=== PATIENT | female | born 1990 | race African-American/Black ===

== ENCOUNTER 2020-01-23 19:15 | Inpatient (IN) | payer OTHER ==
[2020-01-23] MEDS: Lactated Ringer's 1,000 ML IV SCH (21:00)
[2020-01-23] MEDS ORDERED: Ondansetron PF 4 MG/2 ML Vial IVP PRN (21:04)
[2020-01-23] MEDS ORDERED: Ibuprofen 800 MG TAB PO PRN (21:04)
[2020-01-23] MEDS ORDERED: Lidocaine 1% (PF) 30 ML VIAL SC PRN (21:04)
[2020-01-23] MEDS ORDERED: Promethazine HCl 25 MG/ML VIAL IM PRN (21:04)
[2020-01-23] MEDS ORDERED: hydrALAZINE 20 MG/ML VIAL SLOW IVP PRN (21:04)
[2020-01-23] MEDS ORDERED: Methylergonovine 0.2 MG/ML VIAL IM PRN (21:04)
[2020-01-23] MEDS ORDERED: Misoprostol 200 MCG TAB PR PRN (21:04)
[2020-01-23] MEDS ORDERED: NS / Oxytocin 40 units/1000ml 1,000 ML IV PRN (21:04)
[2020-01-23] MEDS ORDERED: HYDROcodone/Acetaminophen 5/325 mg Tablet PO PRN ×2 (21:04)
[2020-01-23] MEDS ORDERED: NS w/ Oxytocin 10 units 500 ML IV SCH (21:15)
[2020-01-23 21:17] VITALS: BMI 30.9
[2020-01-23] MEDS: Misoprostol 100 MCG TAB VAG SCH (21:29)
[2020-01-23 21:50] LABS: Mean Corpuscular HGB CONC 32.9 g/dL (32.0-36.0); Mean Corpuscular Hemoglobin 27.2 pg (27.0-31.0); Mean Corpuscular Volume 82.7 fL (78.0-98.0); Mean Platelet Volume 9.2 fL (7.4-10.4); Platelet Count 213 thou/uL (130-400); RBC Distribution Width 14.6 % (11.5-14.5); Red Blood Cell (RBC) Count 3.32 mill/uL (4.20-5.40); White Blood Cell (WBC) Count 8.6 thou/uL (4.8-10.8)
[2020-01-23 22:40] LABS: Syphilis Antibody Nonreactive (Nonreactive); Syphilis Antibody Index 0.05 S/CO (<1.00 Non-Reactive)
[2020-01-23 23:41] LABS: HBSAg Index 0.29 S/CO (0-0.99); Hep B Surf Ag Non-Reactive S/CO (NonReactive)
[2020-01-24] MEDS: Butorphanol Tartrate 1 MG/ML VIAL SLOW IVP PRN ×2 (01:51→03:15)
[2020-01-24] MEDS ORDERED: Fentanyl 4 mcg/Bup 0.1% Cadd 100 ML ONE (05:11)
[2020-01-24] MEDS: Lactated Ringer's 1,000 ML IV SCH ×4 (05:21→14:35)
[2020-01-24] MEDS ORDERED: Promethazine HCl 25 MG/ML VIAL IM PRN ×3 (06:02→17:40)
[2020-01-24] MEDS ORDERED: diphenhydrAMINE 50 MG/ML VIAL IVP PRN ×2 (06:02→15:54)
[2020-01-24] MEDS ORDERED: Lactated Ringer's 500 ML IV PRN (06:02)
[2020-01-24] MEDS ORDERED: Ondansetron PF 4 MG/2 ML Vial IVP PRN ×3 (06:02→17:40)
[2020-01-24] MEDS ORDERED: Acetaminophen 325 MG TAB PO PRN ×2 (06:02→17:40)
[2020-01-24] MEDS ORDERED: EPHEDRINE 25 MG/5 ML SYRINGE SLOW IVP PRN (06:02)
[2020-01-24] MEDS ORDERED: Naloxone HCl 0.4 mg/ml Vial IVP PRN ×4 (06:02→15:54)
[2020-01-24] MEDS: Terbutaline Sulfate 1 MG/ML VIAL ONE ×2 (06:13→09:02)
[2020-01-24] MEDS ORDERED: Communication Order-Pharmacy FS SCH ×2 (06:15→16:00)
[2020-01-24] MEDS ORDERED: Fentanyl 4 mcg/Bupivacaine 0.1% Cassette 100 ML EPIDURAL SCH (06:15)
[2020-01-24] MEDS ORDERED: Terbutaline Sulfate 1 MG/ML VIAL SC SCH (06:30)
--- NOTE | 2020-01-24 08:19 | PDOC.LDHP ---
Labor and Delivery H&P Chief complaint: scheduled induction HPI: Here for IOL. Affirms movement. Current gestational age (weeks): 39 Due date: 01/25/20 Dating criteria: second trimester ultrasound Grav: 2 Para: 0 OB History Details: Elective AB Abnormal US findings: No Current medications: pre-sacha vitamins Previous surgical history: none Allergies/Adverse Reactions: Allergies Allergy/AdvReac Type Severity Reaction Status Date / Time No Known Allergies Allergy Verified 01/23/20 21:05 - Physical Exam Vital signs reviewed and normal: yes General: breathing through contractions Lungs: nonlabored breathing Abdomen: gravid FHT: category 2 - Vaginal Exam cm dilated: 5 Effacement: 90% Station: 0 - OB Labs Blood type: B RH: positive Antibody Screen: negative HIV: negative RPR: negative HEPSAg: negative 1 hour GCT: negative GBS: negative Rubella: immune Additional Labs: GCCT neg. COVID neg - Assessment L&D Assessment: elective induction at term - Plan Plan: admit to L&D, informed consent obtained, anesthesia consult for pain management (Epidural replaced Internals x 2 placed. If tachycardia continues - will start ABX empirically for chorioamnionitis.)
--- NOTE | 2020-01-24 09:47 | PDOC.EVN ---
Event Note - Event Note Event Note: Came to room with pt having recurrent late decelerations in the setting of tachysystole, concentrated urine output, rebolus of the epidural. sve 7/100/+1 station. Pt provider has ordered 2 doses of terbutaline, iv fluid boluses. Nursing staff leading in position changes with out resolution. With urine still dark I have asked for another fluid bolus of 500cc (she has received 2L up to now) and O2 in an effort to overcome what appears to be placental insufficiency. Lates have since resolved. Once pt is moved from hands and knees we will change face mask to nasal canula and wean O2 according to tolerance. I anticipate in the very near future as pt has been making fairly rapid change. Primary provider has been updated.
[2020-01-24] MEDS ORDERED: Gentamicin Sulfate 320 MG in Sodium Chloride 0.9% 100 ML IVPB SCH (10:00)
[2020-01-24] MEDS ORDERED: Ampicillin 125 MG/5 ML VIAL IVPB SCH (12:00)
--- NOTE | 2020-01-24 13:00 | PDOC.LDPN ---
Labor & Delivery Progress Note - Subjective Subjective: comfortable (with epidural) - Objective Abnormal vital signs: Tachcardic to 115 follow 2 doses of Terbutaline SC General: NAD Uterine fundus: non tender Dilation: 8 Effacement: 90% Station: 1+ FHT: category 2 Other exam findings: Late decels resolved after Terbutaline x2, position changes , fluid, O2. Resuscitative measures: maternal position change - Assessment (1) Elective induction of labor planned Code(s): [id number] - Current Visit: Yes Status: Acute (2) Encounter for elective induction of labor Code(s): Z34.90 - ENCNTR FOR SUPRVSN OF NORMAL , UNSP, UNSP TRIMESTER Current Visit: Yes Status: Acute (3) Nulliparity Code(s): NIS3200 - Current Visit: Yes Status: Acute -: Baseline 150, minimal variability with periods of moderate variability. One variable decel noted after checking pt while flat on back. MVUs 170. Strip is reviewed in detail with RN. Discussed POC with pt to include starting pitocin with low tolerance for primary section
[2020-01-24] MEDS: Ampicillin 2 GM in Sodium Chloride 0.9% 100 ML IVPB SCH (13:55)
[2020-01-24] MEDS ORDERED: Azithromycin 500 MG VIAL ONE (14:03)
[2020-01-24] MEDS ORDERED: Azithromycin 500 MG in Sodium Chloride 0.9% 250 ML 250 ML IVPB SCH (14:15)
[2020-01-24] MEDS ORDERED: CEFAZOLIN 2 GM in Premix Bag 1 BAG IVPB SCH (14:15)
[2020-01-24] MEDS ORDERED: Bicitra 30 ML UDCUP PO SCH (14:15)
[2020-01-24] MEDS ORDERED: Famotidine/PF 20 mg/2ml Vial ONE (14:29)
[2020-01-24] MEDS ORDERED: Oxytocin 10 UNITS/ML VIAL ONE ×2 (14:36→15:10)
[2020-01-24 15:07] LABS: Actual Bicarbonate (HCO3v) 18 mEq/L (22-28); Base Excess -10.4 mEq/L (-2.0 to +3.0)
[2020-01-24 15:09] LABS: pH (Cord, venous) 7.18 (7.32-7.43)
[2020-01-24 15:10] LABS: Base Excess (BEa) -11.8 mEq/L (-2.0 to +3.0)
[2020-01-24] MEDS ORDERED: MORPHINE 5 MG/10 ML PF VIAL ONE (15:11)
[2020-01-24] MEDS ORDERED: Lidocaine 2% 10 ML INJ ONE (15:18)
[2020-01-24] MEDS ORDERED: Fentanyl 100 MCG/2 ML VIAL ONE (15:27)
[2020-01-24] MEDS ORDERED: HYDROmorphone 2 MG/ML VIAL SLOW IVP PRN (15:54)
[2020-01-24] MEDS ORDERED: Meperidine HCl/PF 25 MG/ML VIAL SLOW IVP PRN (15:54)
[2020-01-24] MEDS ORDERED: Promethazine HCl 25 MG SUPP PR PRN (15:54)
[2020-01-24] MEDS ORDERED: L&D-Morphine 4 MG/ML VIAL SLOW IVP PRN (15:54)
[2020-01-24] MEDS ORDERED: Ondansetron HCl/PF 4 MG/2 ML Vial IVP PRN (15:54)
[2020-01-24] MEDS ORDERED: Naloxone HCl 0.4 mg/ml Vial IV PRN (15:54)
[2020-01-24] MEDS ORDERED: diphenhydrAMINE 25 MG CAP PO PRN (17:40)
[2020-01-24] MEDS ORDERED: Methylergonovine 0.2 MG/ML VIAL IM PRN (17:40)
[2020-01-24] MEDS ORDERED: NS / Oxytocin 40 units/1000ml 1,000 ML IV SCH (17:40)
[2020-01-24] MEDS ORDERED: hydrALAZINE 20 MG/ML VIAL SLOW IVP PRN (17:40)
[2020-01-24] MEDS ORDERED: Lanolin Ointment 7 GM TUBE TOP PRN (17:40)
[2020-01-24] MEDS ORDERED: Misoprostol 200 MCG TAB PR PRN (17:40)
[2020-01-24] MEDS ORDERED: Ketorolac Tromethamine 30 MG/ML VIAL IVP PRN (23:00)
--- NOTE | 2020-01-25 02:58 | OP ---
DATE OF PROCEDURE: 01/24/2020 PREOPERATIVE DIAGNOSIS: 1. Intrauterine at 39 weeks and 6 days. 2. Non-reassuring heart tones. 3. Intolerance to labor. POSTOPERATIVE DIAGNOSES: 1. Intrauterine at 39 weeks and 6 days. 2. Non-reassuring heart tones. 3. Intolerance to labor. PROCEDURE PERFORMED: Primary low transverse section. CENTRAL SUPPLY TECHNICIAN SUPERVISOR: Natalee Marcum CNM ANESTHESIA: Epidural. QUANTITATIVE BLOOD LOSS: 430 mL. COUNTS: Correct. CONDITION: Stable to recovery room. COMPLICATIONS: None. DESCRIPTION OF PROCEDURE: Ms. Rhiannon Sultana is a 29-year-old female, who presented to Labor and Delivery for scheduled induction of labor due to persistent non-reassuring heart tones and intolerance to labor. Decision was made to proceed with primary . The patient was counseled the risks, benefits, and options and was taken to the operating room for surgery. There, she was prepared and draped in normal sterile fashion and placed in dorsal supine position with a leftward tilt. After testing anesthesia for adequacy, I made a Pfannenstiel incision on the patient's lower abdomen and carried it down the level of the fascia. The fascia was incised and extended laterally with Crabtree scissors. The fascial edges were elevated with Layo clamps and dissected off bluntly and sharply from the underlying rectus muscles. Once this was performed, the peritoneal cavity was then entered into bluntly and extended bluntly. An Prudencio O retractor was then inserted to aid in retraction. The hysterotomy was performed in the lower uterine segment in a transverse fashion. was delivered to a sterile field. The was bulb suctioned and the cord was clamped and cut and the infant was handed off to the waiting attendants. Placenta was manually extracted. The uterus was cleared of all clot and debris. The hysterotomy was then closed with #1 PDS in a running locked fashion with a second-imbricating layer. At this point, the hysterotomy was noted to have good hemostasis and the Prudencio O retractor was then removed. The underlying peritoneum was then closed with 2-0 chromic in a running fashion and the fascia was closed with 0 Vicryl in a running fashion. The subcutaneous fat was closed with 2-0 plain gut in two layers in a running fashion. The skin edges noted to have significant amount of bleeding. The skin was closed with 4-0 Monocryl in a running fashion and then the incision was bandaged and a pressure dressing was applied. The patient was taken to recovery room in stable condition. Job ID: [id number] MTDD
[2020-01-25] MEDS: Misoprostol 100 MCG TAB VAG SCH ×2 (03:02→03:03)
[2020-01-25] MEDS: Docusate Calcium (SURFAK) 240 MG CAP PO SCH ×3 (03:02→21:41)
[2020-01-25] MEDS: Ferrous Sulfate 325 MG TAB PO SCH ×3 (03:02→21:41)
[2020-01-25] MEDS: Ampicillin 2 GM in Sodium Chloride 0.9% 100 ML IVPB SCH (03:03)
[2020-01-25] MEDS: Lactated Ringer's 1,000 ML IV SCH ×2 (03:03→17:35)
[2020-01-25] MEDS ORDERED: HYDROcodone/Acetaminophen 5/325 mg Tablet PO PRN (04:00)
[2020-01-25 06:16] LABS: Mean Corpuscular HGB CONC 31.9 g/dL (32.0-36.0); Mean Corpuscular Hemoglobin 26.8 pg (27.0-31.0); Mean Corpuscular Volume 83.9 fL (78.0-98.0); Mean Platelet Volume 8.5 fL (7.4-10.4); Platelet Count 190 thou/uL (130-400); RBC Distribution Width 14.7 % (11.5-14.5)
[2020-01-25] MEDS ORDERED: Adacel (T-DAP) 0.5 ML SYRINGE IM ONE (09:00)
[2020-01-25] MEDS: Prenatal Vitamin 1 TAB PO SCH (10:33)
[2020-01-25] MEDS: Simethicone Chewable 80 MG TAB PO PRN (13:30)
[2020-01-25] MEDS: HYDROcodone/Acetaminophen 5/325 mg Tablet PO PRN ×2 (13:30→21:40)
[2020-01-25] MEDS: Ibuprofen 800 MG TAB PO SCH (22:00)
[2020-01-26] MEDS: Lactated Ringer's 1,000 ML IV SCH ×4 (05:47→22:03)
[2020-01-26] MEDS ORDERED: Ibuprofen 800 MG TAB PO SCH (06:00)
[2020-01-26] MEDS: Ibuprofen 800 MG TAB PO SCH ×3 (06:09→21:22)
[2020-01-26] MEDS: Ferrous Sulfate 325 MG TAB PO SCH ×2 (09:05→21:22)
[2020-01-26] MEDS: Prenatal Vitamin 1 TAB PO SCH (09:05)
[2020-01-26] MEDS: Docusate Calcium (SURFAK) 240 MG CAP PO SCH ×2 (09:05→21:22)
[2020-01-26] MEDS: Simethicone Chewable 80 MG TAB PO PRN (21:22)
[2020-01-27] MEDS: HYDROcodone/Acetaminophen 5/325 mg Tablet PO PRN (03:24)
[2020-01-27] MEDS: Ibuprofen 800 MG TAB PO SCH (06:20)
--- NOTE | 2020-01-27 08:17 | PDOC.PP ---
Post Progress Note Post Day #: 3 Subjective: patient is doing well and is ready to discharge home. PO intake tolerated: yes Flatus: yes Ambulation: yes Weight Weight 175 lb - Physical Examination Respiratory: non-labored breathing Abdominal: lochia, no distention, appropriately TTP Extremities: negative homans (B) Skin: CS incision dry & intact Neurological: no gross focal deficits Psychiatric: A&Ox3, normal affect Result Diagrams: 01/25/20 06:04 Additional Labs: Post Labs Blood Type B POSITIVE 01/23/20 22:44 Hep Bs Antigen Non-Reactive S/CO (NonReactive) 01/23/20 21:55 (1) Elective induction of labor planned Code(s): [id number] - Status: Acute (2) Encounter for elective induction of labor Code(s): Z34.90 - ENCNTR FOR SUPRVSN OF NORMAL , UNSP, UNSP TRIMESTER Status: Acute (3) Nulliparity Code(s): [id number] - Status: Acute - Assessment/Plan a; G2 nowp1 s/p PCS for non reassuring FHT with NML POD3 exam P; Discharge home pain medication sent from Office. 10 days incision check 6 week pp visit.
--- NOTE | 2020-01-27 08:19 | PDOC.PP ---
Post Progress Note Post Day #: 2 Subjective: doign well. would like to stay another day. PO intake tolerated: yes Flatus: yes Ambulation: yes Weight Weight 175 lb - Physical Examination Respiratory: non-labored breathing Abdominal: no distention, appropriately TTP Skin: CS incision dry & intact Psychiatric: A&Ox3, normal affect Result Diagrams: 01/25/20 06:04 Additional Labs: Post Labs Blood Type B POSITIVE 01/23/20 22:44 Hep Bs Antigen Non-Reactive S/CO (NonReactive) 01/23/20 21:55 (1) Elective induction of labor planned Code(s): [id number] - Status: Acute (2) Encounter for elective induction of labor Code(s): Z34.90 - ENCNTR FOR SUPRVSN OF NORMAL , UNSP, UNSP TRIMESTER Status: Acute (3) Nulliparity Code(s): [id number] - Status: Acute - Assessment/Plan pod 2 sp cs with nml exam. P routine pp care. discharge home tomorrow.
--- NOTE | 2020-01-27 08:20 | PDOC.PP ---
Post Progress Note Post Day #: 1 Subjective: Doing ok. Has yet to urinate after removal of ramon PO intake tolerated: yes Flatus: yes Ambulation: yes Weight Weight 175 lb - Physical Examination Respiratory: non-labored breathing Abdominal: no distention, appropriately TTP Extremities: negative homans (B) Skin: CS incision dry & intact Neurological: no gross focal deficits Psychiatric: A&Ox3, normal affect Result Diagrams: 01/25/20 06:04 Additional Labs: Post Labs Blood Type B POSITIVE 01/23/20 22:44 Hep Bs Antigen Non-Reactive S/CO (NonReactive) 01/23/20 21:55 (1) Elective induction of labor planned Code(s): [id number] - Status: Acute (2) Encounter for elective induction of labor Code(s): Z34.90 - ENCNTR FOR SUPRVSN OF NORMAL , UNSP, UNSP TRIMESTER Status: Acute (3) Nulliparity Code(s): [id number] - Status: Acute - Assessment/Plan a s/p pcs for non reassuring fht. NML pod 1 exam P; up to urinate. ambulation x 3 today routine care
[2020-01-27] MEDS: Docusate Calcium (SURFAK) 240 MG CAP PO SCH (08:21)
[2020-01-27] MEDS: Ferrous Sulfate 325 MG TAB PO SCH (08:21)
[2020-01-27] MEDS: Prenatal Vitamin 1 TAB PO SCH (08:21)
[2020-01-27 08:40] VITALS: BP 131/60; TEMP 98.4
[2020-01-27] MEDS: Lactated Ringer's 1,000 ML IV SCH (10:58)
== END 2020-01-27 13:20 | disposition home or self-care (01) | DRG 786 ==
LOC: L&D 19:35 → 3SW 01-24 19:06
PROVIDERS: ADMIT Obstetrics & Gynecology; ATTEND Obstetrics & Gynecology
PROC: 10D00Z1 Extraction of Products of Conception, Low, Open Approach (ICD-10-PCS; principal; 2020-01-25)
PROC: 10907ZC Drainage of Amniotic Fluid, Therapeutic from Products of Conception, Via Natural or Artificial Opening (ICD-10-PCS; 2020-01-25)
PROC: 3E0P7VZ Introduction of Hormone into Female Reproductive, Via Natural or Artificial Opening (ICD-10-PCS; 2020-01-25)
PROC: 3E033VJ Introduction of Other Hormone into Peripheral Vein, Percutaneous Approach (ICD-10-PCS; 2020-01-25)
DX: O76 Abnormality in fetal heart rate and rhythm complicating labor and delivery (principal); O41.1230 Chorioamnionitis, third trimester, not applicable or unspecified; Z20.828 Contact with and (suspected) exposure to other viral communicable diseases; O61.0 Failed medical induction of labor; Z3A.39 39 weeks gestation of pregnancy; Z37.0 Single live birth
CPT/HCPCS: 36415; 51702; 82805; 85027; 86780; 86850; 86900; 86901; 87340; J0290; J0456; J0595; J0690; J1580; J1885; J2274; J2590; J3010; J3105; J3490; S0028

== ENCOUNTER 2020-06-03 17:21 | Emergency (ER) | payer OTHER | END 2020-06-03 19:12 | disposition home or self-care (01) | LOC: ERS 17:21 | DX: K04.7 Periapical abscess without sinus (principal); L03.211 Cellulitis of face | CPT/HCPCS: 99283 ==

== ENCOUNTER 2021-11-15 12:19 | Inpatient (IN) | payer OTHER ==
[2021-11-15 13:26] LABS: Hemoglobin 11.7 g/dL (12.0-16.0); Mean Corpuscular HGB CONC 33.8 g/dL (32.0-36.0); Mean Corpuscular Hemoglobin 31.5 pg (27.0-31.0); Mean Corpuscular Volume 93.2 fL (78.0-98.0); Mean Platelet Volume 7.2 fL (7.4-10.4); Platelet Count 209 thou/uL (130-400); RBC Distribution Width 12.3 % (11.5-14.5); Red Blood Cell (RBC) Count 3.72 mill/uL (4.20-5.40); White Blood Cell (WBC) Count 13.8 thou/uL (4.8-10.8)
[2021-11-15 13:46] LABS: ALT (SGPT) 8 U/L (8-55); AST (SGOT) 9 U/L (5-34); Albumin 3.7 g/dL (3.5-5.0); Alkaline Phosphatase 64 U/L (40-110); Anion Gap 15 mmol/L (10-20); BUN (Urea Nitrogen) 9 mg/dL (7.0-18.7); Bilirubin, Total 0.7 mg/dL (0.2-1.2); Calc. Creatinine Clearance 0 mL/min (70-130); Calcium 8.9 mg/dL (7.8-10.44); Carbon Dioxide 22 mmol/L (22-29); Chloride 97 mmol/L (98-107); Globulin 3.7 g/dL (2.4-3.5); Glucose 126 mg/dL (70-105); Protein, Total 7.4 g/dL (6.0-8.3); Sodium 131 mmol/L (136-145)
[2021-11-15 13:51] LABS: Band 16 % (5-11); Lymphocytes 10 % (21-51); MDiff Complete? YES; Monocytes 8 % (0-10); Neutrophil 66 % (42-75); Platelet Morphology Comment Appears Adequate; Polychromasia SLIGHT = 2-3 cells (100X) (0-2/hpf)
[2021-11-15 13:53] LABS: Potassium 2.8 mmol/L (3.5-5.1)
[2021-11-15] MEDS ORDERED: Potassium Chloride 20 MEQ TAB ONE (14:17)
[2021-11-15] MEDS ORDERED: Ketorolac Tromethamine 30 MG/ML VIAL ONE (14:17)
[2021-11-15 16:01] LABS: BHCG - Serum Negative (NEGATIVE); Pregs Control Background? CLEAR/WHITE (CLR/WHITE); Pregs Control Bar Appear? YES (CONTROL BAR)
[2021-11-15 16:03] LABS: Bacteria/HPF 2+ HPF (None Seen); Bilirubin Negative (Negative); Blood, Urine 1+ (Negative); Clarity Turbid (Clear); Glucose, Urine (Dipstick) Normal (Negative); Ketone, Urine 10 mg/dL (Negative); Leukocyte 500 Leu/uL (Negative); Nitrite 2+ (Negative); Protein, Urine (Dipstick) 30 mg/dL (Neg-Trace); Specific Gravity, Urine 1.012 (1.002-1.036); Urobilinogen Normal mg/dL (Less than 2); WBC/HPF Greater than 50 HPF (0-3)
[2021-11-15 16:15] LABS: Pregnancy Test - Urine (BHCG) Negative (Negative)
[2021-11-15 16:16] LABS: Pregu Control Background? CLEAR/WHITE (CLR/WHITE); Pregu Control Bar Appear? YES (CONTROL BAR); Specific Gravity 1.012 (1.002-1.036)
[2021-11-15] MEDS ORDERED: Vancomycin 1 GM/200 ML BAG ONE (16:33)
[2021-11-15] MEDS ORDERED: cefTRIAXone\\ROCEPHIN 2 GM VIAL ONE (16:33)
[2021-11-15] MEDS ORDERED: Ondansetron PF 4 MG/2 ML Vial IVP PRN (17:16)
[2021-11-15] MEDS ORDERED: Acetaminophen 650 MG Suppository PR PRN (17:16)
[2021-11-15] MEDS ORDERED: Ondansetron ODT 4 MG TAB PO PRN (17:16)
[2021-11-15] MEDS ORDERED: Melatonin 3 MG TAB PO PRN (17:19)
[2021-11-15] MEDS ORDERED: Potassium Chloride 20 MEQ TAB PO SCH (17:30)
[2021-11-15 18:09] LABS: Magnesium 1.8 mg/dL (1.6-2.6)
[2021-11-15 18:26] VITALS: BMI 27.6
[2021-11-15] MEDS: Acetaminophen 325 MG TAB PO PRN (18:44)
[2021-11-15] MEDS: Sodium Chloride 0.9% 1,000 ML IV SCH (18:45)
[2021-11-15] MEDS ORDERED: Electrolyte Replacement Protocol 1 EACH FS SCH (20:33)
[2021-11-15 22:48] LABS: Anion Gap 11 mmol/L (10-20); BUN (Urea Nitrogen) 8 mg/dL (7.0-18.7); Calc. Creatinine Clearance 83 mL/min (70-130); Calcium 7.7 mg/dL (7.8-10.44); Carbon Dioxide 23 mmol/L (22-29); Chloride 107 mmol/L (98-107); Glucose 130 mg/dL (70-105); Potassium 3.5 mmol/L (3.5-5.1); Sodium 137 mmol/L (136-145)
[2021-11-16] MEDS ORDERED: Magnesium 2 GM/50 ML(in water) 2 GM in Premix Bag 1 BAG IVPB SCH (01:00)
[2021-11-16] MEDS: Acetaminophen 325 MG TAB PO PRN ×2 (01:00→18:00)
[2021-11-16] MEDS: Sodium Chloride 0.9% 1,000 ML IV SCH ×3 (01:01→15:38)
[2021-11-16] MEDS ORDERED: Acetaminophen 325 MG TAB PO SCH (03:30)
[2021-11-16 06:27] LABS: #Lymphocytes 1.2 thou/uL (1.20-3.40); #Monocytes 1.8 thou/uL (0.11-0.59); #Neutrophils 11.6 thou/uL (1.40-6.50); %Basophils 0.1 % (0.0-1.0); %Eosinophils 0.1 % (0.0-10.0); %Monocytes 12.2 % (0.0-10.0); %Neutrophils 79.6 % (42.0-75.0); Hemoglobin 10.5 g/dL (12.0-16.0); Mean Corpuscular Hemoglobin 30.7 pg (27.0-31.0); Mean Platelet Volume 7.3 fL (7.4-10.4); Platelet Count 192 thou/uL (130-400); RBC Distribution Width 12.6 % (11.5-14.5); Red Blood Cell (RBC) Count 3.43 mill/uL (4.20-5.40); White Blood Cell (WBC) Count 14.5 thou/uL (4.8-10.8)
[2021-11-16 06:48] LABS: Anion Gap 11 mmol/L (10-20); BUN (Urea Nitrogen) 7 mg/dL (7.0-18.7); Calc. Creatinine Clearance 73 mL/min (70-130); Calcium 8.1 mg/dL (7.8-10.44); Carbon Dioxide 21 mmol/L (22-29); Chloride 109 mmol/L (98-107); Glucose 114 mg/dL (70-105); Potassium 3.6 mmol/L (3.5-5.1); Sodium 137 mmol/L (136-145)
[2021-11-16] MEDS ORDERED: Potassium Chloride 20 MEQ TAB PO SCH (09:00)
[2021-11-16 13:34] LABS: Potassium 3.6 mmol/L (3.5-5.1)
[2021-11-16] MEDS: cefTRIAXone\\ROCEPHIN 1 GM in Sodium Chloride 0.9% 100 ML IVPB SCH (15:38)
[2021-11-16] MEDS: metroNIDAZOLE 500 MG in Premix Bag 1 BAG IVPB SCH (20:38)
[2021-11-17] MEDS: Sodium Chloride 0.9% 1,000 ML IV SCH ×3 (02:00→15:40)
[2021-11-17] MEDS: metroNIDAZOLE 500 MG in Premix Bag 1 BAG IVPB SCH ×3 (04:07→20:39)
[2021-11-17 06:27] LABS: #Basophils 0.1 thou/uL (0.0-0.2); #Lymphocytes 1.8 thou/uL (1.20-3.40); #Monocytes 1.3 thou/uL (0.11-0.59); #Neutrophils 9.2 thou/uL (1.40-6.50); %Basophils 0.5 % (0.0-1.0); %Eosinophils 0.3 % (0.0-10.0); %Lymphocytes 14.6 % (21.0-51.0); %Monocytes 10.6 % (0.0-10.0); %Neutrophils 74.1 % (42.0-75.0); Mean Corpuscular HGB CONC 31.5 g/dL (32.0-36.0); Mean Corpuscular Hemoglobin 29.8 pg (27.0-31.0); Mean Corpuscular Volume 94.7 fL (78.0-98.0); Mean Platelet Volume 6.9 fL (7.4-10.4); Platelet Count 216 thou/uL (130-400); Red Blood Cell (RBC) Count 3.35 mill/uL (4.20-5.40); White Blood Cell (WBC) Count 12.4 thou/uL (4.8-10.8)
[2021-11-17 07:01] LABS: Anion Gap 8 mmol/L (10-20); BUN (Urea Nitrogen) 5 mg/dL (7.0-18.7); Calc. Creatinine Clearance 93 mL/min (70-130); Calcium 8.3 mg/dL (7.8-10.44); Carbon Dioxide 20 mmol/L (22-29); Chloride 114 mmol/L (98-107); Glucose 100 mg/dL (70-105); Potassium 3.8 mmol/L (3.5-5.1); Sodium 138 mmol/L (136-145)
[2021-11-17] MEDS: cefTRIAXone\\ROCEPHIN 1 GM in Sodium Chloride 0.9% 100 ML IVPB SCH (15:39)
[2021-11-17] MEDS ORDERED: Ketorolac Tromethamine 30 MG/ML VIAL IVP PRN (19:15)
[2021-11-17] MEDS ORDERED: Ketorolac Tromethamine 30 MG/ML VIAL IVP SCH (19:15)
[2021-11-17] MEDS ORDERED: Acetaminophen 500 MG TAB PO SCH (19:15)
[2021-11-17] MEDS ORDERED: Scopolamine 1.5 mg/72 hour Patch TD SCH (19:15)
[2021-11-18] MEDS: Sodium Chloride 0.9% 1,000 ML IV SCH ×3 (01:00→14:11)
[2021-11-18] MEDS: metroNIDAZOLE 500 MG in Premix Bag 1 BAG IVPB SCH ×2 (04:13→13:54)
[2021-11-18 06:32] LABS: #Eosinphils 0.1 thou/uL (0.0-0.7); #Lymphocytes 2.4 thou/uL (1.20-3.40); #Monocytes 0.8 thou/uL (0.11-0.59); #Neutrophils 6.7 thou/uL (1.40-6.50); %Basophils 0.4 % (0.0-1.0); %Eosinophils 0.5 % (0.0-10.0); %Lymphocytes 24.2 % (21.0-51.0); %Monocytes 7.9 % (0.0-10.0); %Neutrophils 66.9 % (42.0-75.0); Hemoglobin 9.5 g/dL (12.0-16.0); Mean Corpuscular HGB CONC 32.8 g/dL (32.0-36.0); Mean Corpuscular Volume 94.4 fL (78.0-98.0); Mean Platelet Volume 6.8 fL (7.4-10.4); Platelet Count 267 thou/uL (130-400); RBC Distribution Width 13.1 % (11.5-14.5); Red Blood Cell (RBC) Count 3.07 mill/uL (4.20-5.40)
[2021-11-18 06:41] LABS: Anion Gap 10 mmol/L (10-20); BUN (Urea Nitrogen) 6 mg/dL (7.0-18.7); Calc. Creatinine Clearance 96 mL/min (70-130); Calcium 8.1 mg/dL (7.8-10.44); Carbon Dioxide 20 mmol/L (22-29); Chloride 111 mmol/L (98-107); Glucose 93 mg/dL (70-105); Potassium 3.2 mmol/L (3.5-5.1); Sodium 138 mmol/L (136-145)
[2021-11-18] MEDS ORDERED: Ketorolac Tromethamine 30 MG/ML VIAL ONE (07:54)
[2021-11-18] MEDS ORDERED: Acetaminophen 500 MG TAB ONE (07:54)
[2021-11-18] MEDS ORDERED: Potassium Chloride 20 MEQ TAB PO SCH (08:00)
[2021-11-18] MEDS ORDERED: Bupivacaine PF 0.5% 30 ML VIAL ONE (08:35)
[2021-11-18] MEDS ORDERED: Lidocaine 1% w/Epinephrine 1:100K 20 ML VIAL ONE (08:35)
[2021-11-18] MEDS ORDERED: fentaNYL Citrate/PF 100 MCG/2 ML SYRINGE ONE (08:40)
[2021-11-18] MEDS ORDERED: Ondansetron PF 4 MG/2 ML Vial ONE (08:41)
[2021-11-18] MEDS ORDERED: SUGAMMADEX SODIUM 200 MG/2 ML VIAL ONE (08:41)
[2021-11-18] MEDS ORDERED: Famotidine/PF 20 mg/2ml Vial ONE (08:41)
[2021-11-18] MEDS ORDERED: Metoclopramide HCl 10 MG/2 ML VIAL ONE (08:41)
[2021-11-18] MEDS ORDERED: Meperidine HCl/PF 25 MG/ML VIAL ONE (08:41)
[2021-11-18] MEDS ORDERED: Midazolam HCl 2 mg/2 ml Vial ONE (08:42)
[2021-11-18] MEDS ORDERED: Acetaminophen 500 MG TAB PO PRN (09:09)
[2021-11-18] MEDS ORDERED: traMADol HCl 50 MG TAB PO PRN (09:09)
[2021-11-18] MEDS ORDERED: Ibuprofen 600 MG TAB PO PRN (09:09)
[2021-11-18] MEDS ORDERED: Meperidine HCl/PF 25 MG/ML VIAL SLOW IVP PRN (09:17)
[2021-11-18] MEDS ORDERED: Promethazine HCl 25 MG/ML VIAL IM PRN (09:17)
[2021-11-18] MEDS ORDERED: Ondansetron HCl/PF 4 MG/2 ML Vial IVP PRN (09:17)
[2021-11-18] MEDS ORDERED: Promethazine HCl 25 MG/ML VIAL IVPB PRN (09:17)
[2021-11-18] MEDS ORDERED: Fentanyl 100 MCG/2 ML VIAL ONE (11:03)
[2021-11-18 17:07] VITALS: BP 142/92; TEMP 98.7
[2021-11-18] MEDS: cefTRIAXone\\ROCEPHIN 1 GM in Sodium Chloride 0.9% 100 ML IVPB SCH (18:10)
== END 2021-11-18 19:02 | disposition home or self-care (01) | DRG 854 ==
LOC: ERS 12:19 → T4-A 16:28
PROVIDERS: ADMIT Internal Medicine; ATTEND Internal Medicine
PROC: 3E03329 Introduction of Other Anti-infective into Peripheral Vein, Percutaneous Approach (ICD-10-PCS; 2021-11-15)
PROC: 0FT44ZZ Resection of Gallbladder, Percutaneous Endoscopic Approach (ICD-10-PCS; principal; 2021-11-17)
DX: A41.51 Sepsis due to Escherichia coli [E. coli] (principal); N10 Acute pyelonephritis; K80.12 Calculus of gallbladder with acute and chronic cholecystitis without obstruction; E87.6 Hypokalemia; Z79.899 Other long term (current) drug therapy; Z20.822 Contact with and (suspected) exposure to COVID-19
CPT/HCPCS: 36415; 71045; 74176; 76705; 80048; 80053; 81003; 81015; 81025; 83605; 83690; 83735; 84703; 85025; 87040; 87077; 87086; 87186; 88304; 96361; 96365; 96367; 96375; C1713; J0696; J1885; J2175; J2250; J2405; J2765; J3010; J3370; J3475; J3490; J7050; S0020; S0028; U0003; U0005